=== PATIENT | male | born 1945 | race Caucasian/White ===

== ENCOUNTER 2016-02-22 08:56 | Emergency (ER) | payer OTHER ==
[~2016-02-22] VITALS: Ht 180.3 cm; Wt 79.2 kg
[~2016-02-22 08:56] MED LIST: ANORO ELLIPTA1 EACH IH; ATIVAN0.5 MG PO; AUGMENTIN875 MG PO; AZELASTINE137 MCG/0. BOTH NARES; B-121000 MC2 PO; BENICAR HCT 201 EACH PO; BENICAR HCT 401 EAC1 PO; BENICAR HCT 401 EACH PO; BENICAR40 MG PO; BENTYL20 MG PO; BYSTOLIC10 MG PO; BYSTOLIC5 MG PO; CARDIZEM CD,CA180 MG PO; CEFDINIR300 MG PO; CLINDAMYCIN HC300 MG PO; CLOPIDOGREL75 MG PO; CYANOCOBALAM1000 MCG PO; DELTASONE20 M1 PO; DEXILANT60 MG PO; DILAUDID2 MG PO; DILTIAZEM 24HR240 MG PO; DUONEB 2.5-0.5 M3 ML AEROSOL; DUONEB 2.5-0.5 M3 ML IH; ENDOCET 5-3251 EACH PO; FLEXERIL10 MG PO; HYDROCODON-ACE1 EAC9 PO; INCRUSE ELLI62.5 MCG IH; K-DUR10 MEQ PO; LEVAQUIN500 MG PO; LEVAQUIN750 MG PO; LEVOFLOXACIN500 MG PO; LOPRESSOR25 MG PO; LORAZEPAM0.5 MG PO; LORCET PLUS 7.1 EACH PO; LORTAB 5-325 M1 EACH PO; LOSARTAN POTAS100 MG PO; MEDROL8 MG PO; METOPROLOL TART25 MG PO; NAPROSYN375 MG PO; NASACORT10.8 ML BOTH NARES; NICOTINE PATCH1 EAC2 TD; NITROSTAT0.4 MG SL; OMEPRAZOLE40 M1 PO; PLAVIX75 MG PO; POLYETHYLENE GL17 GM PO; POTASSIUM CHLO20 ME1 PO; PREDNISONE10 MG PO; PREDNISONE20 MG PO; SIMVASTATIN20 MG PO; SIMVASTATIN40 MG PO; STIOLTO RESPIMAT4 GM IH; SYMBICORT60 INHALAT IH; THEO-DUR,THEOC300 MG PO; TUDORZA PRESS400 MCG IH; VENTOLIN HFA18 GM IH; XARELTO20 MG PO; ZITHROMAX Z-PA250 MG PO; ZITHROMAX250 MG PO; ZOLPIDEM TARTRAT5 MG PO
[2016-02-22 09:46] LABS: HEMATOCRIT 27.8 % (38.0-50.0); MCH 21.3 PG (29.0-34.0); MCHC 30.6 G/DL (30.0-36.0); MCV 69.7 FL (86-99); PLATELET COUNT 344 K/uL (156-360); RBC DIS.WIDTH-SD 46.8 % (39-53); RED BLOOD COUNT 3.99 M/uL (4.00-5.50); WHITE BLOOD COUNT 6.6 K/uL (4.1-10.2)
[2016-02-22 10:32] LABS: ANION GAP 15 MEQ/L (2-14); CHLORIDE 88 MEQ/L (99-109); POTASSIUM 2.6 MEQ/L (3.7-5.4); SAMPLE HEMOLYSIS CHECK 0; SAMPLE ICTERIC CHECK 0; SAMPLE LIPEMIA CHECK 0; SODIUM 130 MEQ/L (136-147)
[2016-02-22 10:38] LABS: GFR ESTIMATE (CALCULATED) > 59 mL/min/; GLUCOSE 179 mg/dL (70-99); UREA NITROGEN (BUN) 22 mg/dL (9-23)
[2016-02-22 11:02] LABS: TROP-I INTERPRETATION NEGATIVE; TROPONIN-I < 0.01 ng/mL (0.0-0.30)
[2016-02-22 13:17] VITALS: BP 142/77
== END 2016-02-22 13:21 | disposition home or self-care (01) ==
LOC: EME 08:56
PROVIDERS: Emergency Medicine
DX: E86.0 Dehydration (principal); E87.6 Hypokalemia; I48.91 Unspecified atrial fibrillation; J44.9 Chronic obstructive pulmonary disease, unspecified; E78.5 Hyperlipidemia, unspecified; I10 Essential (primary) hypertension; I25.2 Old myocardial infarction; K21.9 Gastro-esophageal reflux disease without esophagitis; Z95.1 Presence of aortocoronary bypass graft; Z79.891 Long term (current) use of opiate analgesic; F17.200 Nicotine dependence, unspecified, uncomplicated
CPT/HCPCS: 80048; 84484; 85027; 93005; 99281; 99285; J3480; J7030

== ENCOUNTER 2016-03-23 05:34 | Inpatient (IN) | payer OTHER ==
[~2016-03-23] VITALS: Ht 180.3 cm; Wt 86.3 kg
[~2016-03-23 05:34] MED LIST changes: +FERROUS SULFAT325 MG PO; +FUROSEMIDE40 MG PO; +K-DUR20 MEQ PO
[2016-03-23 06:36] LABS: EOSINOPHIL (%) 0.3 % (0-5); EOSINOPHIL COUNT 0.1 K/uL (0-0.3); HEMATOCRIT 41.8 % (38.0-50.0); IMMATURE GRANULOCYTE COUNT 1.4 K/uL; LYMPHOCYTE COUNT 1.2 K/uL (1.0-2.8); MCH 24.2 PG (29.0-34.0); MCHC 29.9 G/DL (30.0-36.0); MEAN PLAT.VOLUME 9.1 uM^3 (9.0-12.4); MONOCYTE (%) 4.3 % (3-12); MONOCYTE COUNT 0.6 K/uL (0-0.8); NEUTROPHIL COUNT 12.5 K/uL (1.8-6.4); RBC DIS.WIDTH-CV 28.5 % (11.8-14.6); RBC DIS.WIDTH-SD 79.8 % (39-53); WHITE BLOOD COUNT 14.5 K/uL (4.1-10.2)
[2016-03-23 06:39] LABS: CHLORIDE 99 mEq/L (99-109); POTASSIUM 3.6 mEq/L (3.7-5.4)
[2016-03-23 06:40] LABS: MCV 80.9 FL (86-99); PLATELET COUNT 242 K/uL (156-360); RED BLOOD COUNT 5.17 M/uL (4.00-5.50); SODIUM 140 mEq/L (136-147)
[2016-03-23 06:42] LABS: GLUCOSE 85 mg/dL (70-99)
[2016-03-23 06:43] LABS: ANION GAP 13 MEQ/L (2-14)
[2016-03-23 06:44] LABS: TOTAL BILIRUBIN 0.6 mg/dL (0.0-1.0)
[2016-03-23 06:45] LABS: ALKALINE PHOSPHATASE 68 IU/L (3-129); GFR ESTIMATE (CALCULATED) > 59 mL/min/
[2016-03-23 06:47] LABS: UREA NITROGEN (BUN) 25 mg/dL (9-23)
[2016-03-23 06:54] LABS: TROP-I INTERPRETATION NEGATIVE; TROPONIN-I 0.02 ng/mL (0.0-0.30)
[2016-03-23 07:20] LABS: SAMPLE HEMOLYSIS CHECK 0; SAMPLE ICTERIC CHECK 0; SAMPLE LIPEMIA CHECK 0
[2016-03-23 07:33] LABS: HEMATOLOGY COMMENT 1 CCL; PLAT.SUFFICIENCY ADEQUATE
[2016-03-23] MEDS ORDERED: MIRALAX255 GM PO (12:28)
[2016-03-23] MEDS ORDERED: ZOLPIDEM TARTRAT5 MG PO (12:28)
[2016-03-23] MEDS ORDERED: METHYLPREDNISOLO8 MG PO (12:29)
[2016-03-23 13:26] VITALS: BP 146/74
[2016-03-23 16:24] VITALS: BP 132/86
[2016-03-23 19:20] VITALS: BP 141/90
[2016-03-23 22:57] VITALS: BP 151/89
[2016-03-24 03:17] VITALS: BP 156/88
[2016-03-24 08:14] VITALS: BP 136/96
[2016-03-24 16:21] VITALS: BP 132/70; BP 134/94
[2016-03-24 20:00] VITALS: BP 153/92
[2016-03-24 23:57] VITALS: BP 144/82
[2016-03-25] VITALS (7 sets, daily range): BP systolic 139–163; BP diastolic 79–102
[2016-03-25 07:08] LABS: HEMATOCRIT 38.1 % (38.0-50.0); MCH 25.1 PG (29.0-34.0); MCHC 30.7 G/DL (30.0-36.0); MCV 81.6 FL (86-99); PLATELET COUNT 209 K/uL (156-360); RBC DIS.WIDTH-CV 27.4 % (11.8-14.6); RBC DIS.WIDTH-SD 80.4 % (39-53); RED BLOOD COUNT 4.67 M/uL (4.00-5.50); WHITE BLOOD COUNT 11.3 K/uL (4.1-10.2)
[2016-03-25 07:22] LABS: EOSINOPHIL (%) 0 % (0-5); IMMATURE GRANULOCYTE (%) 0.5 % (0.0-0.7); IMMATURE GRANULOCYTE COUNT 0.1 K/uL; LYMPHOCYTE COUNT 0.4 K/uL (1.0-2.8); MONOCYTE (%) 1.9 % (3-12); MONOCYTE COUNT 0.2 K/uL (0-0.8); NEUTROPHIL COUNT 10.6 K/uL (1.8-6.4)
[2016-03-25 07:45] LABS: ANION GAP 14 MEQ/L (2-14); CHLORIDE 97 MEQ/L (99-109); GFR ESTIMATE (CALCULATED) > 59 mL/min/; POTASSIUM 3.8 MEQ/L (3.7-5.4); SAMPLE HEMOLYSIS CHECK 0; SAMPLE ICTERIC CHECK 0; SAMPLE LIPEMIA CHECK 0; SODIUM 135 MEQ/L (136-147); UREA NITROGEN (BUN) 35 mg/dL (9-23)
[2016-03-25 07:46] LABS: GLUCOSE 163 mg/dL (70-99)
[2016-03-25 16:44] LABS: INTERNAL CONTROL VALID? YES
[2016-03-26 00:21] VITALS: BP 160/89
[2016-03-26 07:30] VITALS: BP 159/93
[2016-03-26 11:33] VITALS: BP 136/98
[2016-03-26 15:43] VITALS: BP 138/54
[2016-03-26 19:49] VITALS: BP 178/106
[2016-03-27] VITALS (7 sets, daily range): BP systolic 140–186; BP diastolic 78–103
[2016-03-28 03:02] VITALS: BP 138/81
[2016-03-28 07:06] LABS: NRBC (%) 0.3 /100 WBC (0-0)
[2016-03-28 07:23] LABS: EOSINOPHIL (%) 0 % (0-5); IMMATURE GRANULOCYTE (%) 0.6 % (0.0-0.7); IMMATURE GRANULOCYTE COUNT 0.1 K/uL; LYMPHOCYTE COUNT 0.5 K/uL (1.0-2.8); MONOCYTE (%) 1.6 % (3-12); MONOCYTE COUNT 0.2 K/uL (0-0.8); NEUTROPHIL (%) 92.8 % (45-76); NEUTROPHIL COUNT 9.5 K/uL (1.8-6.4)
[2016-03-28 07:36] LABS: HEMATOCRIT 38.3 % (38.0-50.0); MCH 24.9 PG (29.0-34.0); MCHC 30.5 G/DL (30.0-36.0); MCV 81.7 FL (86-99); RBC DIS.WIDTH-CV 26.2 % (11.8-14.6); RBC DIS.WIDTH-SD 75.8 % (39-53); RED BLOOD COUNT 4.69 M/uL (4.00-5.50); WHITE BLOOD COUNT 10.2 K/uL (4.1-10.2)
[2016-03-28 07:38] LABS: ALKALINE PHOSPHATASE 52 IU/L (3-129); ANION GAP 13 MEQ/L (2-14); CHLORIDE 93 MEQ/L (99-109); GFR ESTIMATE (CALCULATED) > 59 mL/min/; GLUCOSE 158 mg/dL (70-99); POTASSIUM 3.9 MEQ/L (3.7-5.4); SAMPLE HEMOLYSIS CHECK 0; SAMPLE ICTERIC CHECK 0; SAMPLE LIPEMIA CHECK 0; SODIUM 135 MEQ/L (136-147); TOTAL BILIRUBIN 0.8 MG/DL (0.0-1.0); UREA NITROGEN (BUN) 42 mg/dL (9-23)
[2016-03-28 07:59] VITALS: BP 168/97
[2016-03-28 08:57] LABS: MEAN PLAT.VOLUME 10.1 uM^3 (9.0-12.4); PLAT.SUFFICIENCY ADEQUATE; PLATELET COUNT 156 K/uL (156-360); USER ID STC
[2016-03-28 12:28] VITALS: BP 173/105
[2016-03-28 15:11] VITALS: BP 147/87
[2016-03-28 19:57] VITALS: BP 137/83
[2016-03-28 23:09] VITALS: BP 149/91
[2016-03-29 03:33] VITALS: BP 139/78
[2016-03-29 07:55] VITALS: BP 166/97
[2016-03-29 12:10] VITALS: BP 180/110
[2016-03-29 16:28] VITALS: BP 138/77
[2016-03-29 19:22] VITALS: BP 168/92
[2016-03-29 23:20] VITALS: BP 142/84
[2016-03-30 03:11] VITALS: BP 130/75
[2016-03-30 10:18] VITALS: BP 133/90
[2016-03-30 13:30] VITALS: BP 127/84
[2016-03-30 18:57] VITALS: BP 136/99
[2016-03-30 20:06] VITALS: BP 157/100
[2016-03-31] VITALS: BP 130/74
[2016-03-31 03:50] VITALS: BP 159/78
[2016-03-31 07:12] LABS: ANION GAP 11 MEQ/L (2-14); CHLORIDE 95 MEQ/L (99-109); GFR ESTIMATE (CALCULATED) > 59 mL/min/; GLUCOSE 208 mg/dL (70-99); SAMPLE HEMOLYSIS CHECK 0; SAMPLE ICTERIC CHECK 0; SAMPLE LIPEMIA CHECK 0; SODIUM 139 MEQ/L (136-147); UREA NITROGEN (BUN) 40 mg/dL (9-23)
[2016-03-31 07:17] LABS: POTASSIUM 2.9 MEQ/L (3.7-5.4)
[2016-03-31 08:15] LABS: HEMATOCRIT 39.6 % (38.0-50.0); MCH 23.8 PG (29.0-34.0); MCHC 29.3 G/DL (30.0-36.0); MCV 81.3 FL (86-99); PLATELET COUNT 123 K/uL (156-360); RBC DIS.WIDTH-CV 25.1 % (11.8-14.6); RBC DIS.WIDTH-SD 72.4 % (39-53); RED BLOOD COUNT 4.87 M/uL (4.00-5.50); WHITE BLOOD COUNT 8.7 K/uL (4.1-10.2)
[2016-03-31 08:23] LABS: ABS NEUTROPHIL COUNT 8.45; ANISOCYTOSIS 2+; HELMET CELLS RARE; HYPOCHROMASIA 2+; MACROCYTES 2+; OVALOCYTES OCC; PLAT.SUFFICIENCY DECREASED; POLYCHROMASIA RARE; SCHISTOCYTES RARE; SPHEROCYTES 1+; TARGET CELLS RARE; USER ID TLW
[2016-03-31 08:32] VITALS: BP 133/93
[2016-03-31 14:18] LABS: DELETE MACHINE DIFF? YES
[2016-03-31 16:00] VITALS: BP 155/95
[2016-04-01] VITALS: BP 144/101
[2016-04-01 08:20] VITALS: BP 149/95
[2016-04-01 11:46] LABS: ANION GAP 13 MEQ/L (2-14); CHLORIDE 98 MEQ/L (99-109); GFR ESTIMATE (CALCULATED) > 59 mL/min/; GLUCOSE 138 mg/dL (70-99); POTASSIUM 3.9 MEQ/L (3.7-5.4); SAMPLE HEMOLYSIS CHECK 0; SAMPLE ICTERIC CHECK 0; SAMPLE LIPEMIA CHECK 0; SODIUM 135 MEQ/L (136-147); UREA NITROGEN (BUN) 40 mg/dL (9-23)
[2016-04-01] MEDS ORDERED: MUCINEX600 MG PO (14:27)
[2016-04-01] MEDS ORDERED: ADVAIR HFA120 INHAL1 IH (14:27)
[2016-04-01] MEDS ORDERED: ANALGESIC BALM28 GM TP (14:27)
== END 2016-04-01 17:30 | disposition home or self-care (01) | DRG 192 ==
LOC: EME 05:34 → 5EAST 10:53 → EDOF 10:53 → 5EAST 12:38
PROVIDERS: Emergency Medicine; Internal Medicine; Internal Medicine Pulmonary Disease
DX: J44.1 Chronic obstructive pulmonary disease with (acute) exacerbation (principal); I48.91 Unspecified atrial fibrillation; J40 Bronchitis, not specified as acute or chronic; J01.90 Acute sinusitis, unspecified; I73.9 Peripheral vascular disease, unspecified; I25.10 Atherosclerotic heart disease of native coronary artery without angina pectoris; I10 Essential (primary) hypertension; F17.210 Nicotine dependence, cigarettes, uncomplicated; M19.90 Unspecified osteoarthritis, unspecified site; Z95.1 Presence of aortocoronary bypass graft; D64.9 Anemia, unspecified; E66.9 Obesity, unspecified
CPT/HCPCS: 36415; 71010; 71020; 80048; 80053; 80198; 82272; 83880; 84484; 85025; 86850; 86900; 86901; 86920; 86999; 87040; 87070; 87205; 93005; 94640; 94640 76; 94667; 94668; 94799; 99202; 99281; 99285; J0456; J0692; J0696; J2920; J2930; J3475; J7030; J7050

== ENCOUNTER 2016-04-19 11:47 | Inpatient (IN) | payer OTHER ==
[~2016-04-19] VITALS: Ht 181.6 cm; Wt 78.0 kg
[~2016-04-19 11:47] MED LIST changes: +ADVAIR HFA120 INHAL1 IH; +ANALGESIC BALM28 GM TP; +METHYLPREDNISOLO8 MG PO; +MIRALAX255 GM PO; +MUCINEX600 MG PO
[2016-04-19 12:37] LABS: HEMATOCRIT 36.8 % (38.0-50.0); MCH 26.2 PG (29.0-34.0); MCHC 32.3 G/DL (30.0-36.0); MCV 80.9 FL (86-99); MEAN PLAT.VOLUME 9.1 uM^3 (9.0-12.4); NRBC (%) 0.6 /100 WBC (0-0); PLATELET COUNT 212 K/uL (156-360); RBC DIS.WIDTH-CV 21.6 % (11.8-14.6); RBC DIS.WIDTH-SD 63.7 % (39-53); RED BLOOD COUNT 4.55 M/uL (4.00-5.50)
[2016-04-19 12:40] LABS: WHITE BLOOD COUNT 10.9 K/uL (4.1-10.2)
[2016-04-19 12:48] LABS: INTER. NORMALIZED RATIO 1.5; PROTHROMBIN TIME 15.6 (9.2-11.2); PTT 29.8 (25-32)
[2016-04-19 12:54] LABS: CHLORIDE 87 mEq/L (99-109); POTASSIUM 2.8 mEq/L (3.7-5.4); SODIUM 133 mEq/L (136-147)
[2016-04-19 12:57] LABS: ANION GAP 14 MEQ/L (2-14)
[2016-04-19 12:59] LABS: GFR ESTIMATE (CALCULATED) > 59 mL/min/
[2016-04-19 13:02] LABS: TROP-I INTERPRETATION NEGATIVE; TROPONIN-I 0.03 ng/mL (0.0-0.30)
[2016-04-19 13:23] LABS: GLUCOSE 140 mg/dL (70-99)
[2016-04-19 13:28] LABS: UREA NITROGEN (BUN) 24 mg/dL (9-23)
[2016-04-19 13:50] LABS: ABS NEUTROPHIL COUNT 8.5; ANISOCYTOSIS 1+; BAND NEUTROPHILS 0.9 % (0-8.0); BASOPHILS 0.9 %; EOSINOPHIL ABS CT 0; INSTRUMENT ABS NEUTROPHIL CT 7.8 K/uL; LYMPHOCYTES 4.4 % (15.0-45.0); METAMYELOCYTES 6.1 %; MICROCYTOSIS 1+; NUCLEATED RBC'S 2.6; PLAT.SUFFICIENCY ADEQUATE; POIKILOCYTOSIS 1+; SEG.NEUTROPHILS 77.2 % (46.0-76.0); SMUDGE CELLS 8.8; SPHEROCYTES 2+
[2016-04-19] MEDS ORDERED: FERGON324 MG PO (14:25)
[2016-04-19] MEDS ORDERED: ZOLPIDEM TARTRA10 MG PO (14:27)
[2016-04-19] MEDS ORDERED: FLONASE16 G1 BOTH NARES (14:29)
[2016-04-19] MEDS ORDERED: ASTEPRO 0.15%30 ML BOTH NARES (14:30)
[2016-04-19] MEDS ORDERED: SYMBICORT60 INHALAT IH (14:34)
[2016-04-19] MEDS ORDERED: VITAMIN B-12500 MC5 SL (14:35)
[2016-04-20 00:30] VITALS: BP 103/64
[2016-04-20 03:45] VITALS: BP 105/59
[2016-04-20 04:52] LABS: HEMATOCRIT 32.7 % (38.0-50.0); MCH 25.9 PG (29.0-34.0); MCHC 32.1 G/DL (30.0-36.0); MCV 80.5 FL (86-99); MEAN PLAT.VOLUME 9.4 uM^3 (9.0-12.4); NRBC (%) 0.6 /100 WBC (0-0); PLATELET COUNT 180 K/uL (156-360); RBC DIS.WIDTH-CV 21.5 % (11.8-14.6); RBC DIS.WIDTH-SD 63.3 % (39-53); RED BLOOD COUNT 4.06 M/uL (4.00-5.50); WHITE BLOOD COUNT 9.1 K/uL (4.1-10.2)
[2016-04-20 05:04] LABS: CHLORIDE 91 mEq/L (99-109); SODIUM 133 mEq/L (136-147)
[2016-04-20 05:06] LABS: GLUCOSE 180 mg/dL (70-99)
[2016-04-20 05:07] LABS: ANION GAP 12 MEQ/L (2-14)
[2016-04-20 05:08] LABS: TOTAL BILIRUBIN 0.5 mg/dL (0.0-1.0)
[2016-04-20 05:10] LABS: ALKALINE PHOSPHATASE 163 IU/L (3-129); GFR ESTIMATE (CALCULATED) > 59 mL/min/
[2016-04-20 05:11] LABS: UREA NITROGEN (BUN) 25 mg/dL (9-23)
[2016-04-20 08:47] VITALS: BP 170/83
[2016-04-20 15:32] VITALS: BP 141/74
[2016-04-20 19:13] VITALS: BP 135/90
[2016-04-20 23:08] VITALS: BP 123/61
[2016-04-21 04:15] VITALS: BP 141/71
[2016-04-21 07:15] LABS: ALKALINE PHOSPHATASE 161 IU/L (3-129); ANION GAP 13 MEQ/L (2-14); CHLORIDE 86 MEQ/L (99-109); GFR ESTIMATE (CALCULATED) > 59 mL/min/; GLUCOSE 191 mg/dL (70-99); POTASSIUM 3.1 MEQ/L (3.7-5.4); SAMPLE HEMOLYSIS CHECK 0; SAMPLE ICTERIC CHECK 0; SAMPLE LIPEMIA CHECK 0; SODIUM 131 MEQ/L (136-147); TOTAL BILIRUBIN 0.7 MG/DL (0.0-1.0); UREA NITROGEN (BUN) 32 mg/dL (9-23)
[2016-04-21 07:28] LABS: HEMATOCRIT 32.8 % (38.0-50.0); MCH 25.8 PG (29.0-34.0); MCV 80.6 FL (86-99); MEAN PLAT.VOLUME 9.8 uM^3 (9.0-12.4); NRBC (%) 1.7 /100 WBC (0-0); RBC DIS.WIDTH-CV 21.6 % (11.8-14.6); RBC DIS.WIDTH-SD 63.3 % (39-53); RED BLOOD COUNT 4.07 M/uL (4.00-5.50)
[2016-04-21 07:39] LABS: PLATELET COUNT 257 K/uL (156-360)
[2016-04-21 08:15] VITALS: BP 154/89
[2016-04-21 11:25] VITALS: BP 154/87
[2016-04-21 15:40] VITALS: BP 132/70
[2016-04-21 21:00] VITALS: BP 142/69
[2016-04-22] VITALS (7 sets, daily range): BP systolic 97–134; BP diastolic 57–84
[2016-04-23 03:09] VITALS: BP 138/68
[2016-04-23 07:28] LABS: ALKALINE PHOSPHATASE 141 IU/L (3-129); ANION GAP 12 MEQ/L (2-14); CHLORIDE 91 MEQ/L (99-109); GFR ESTIMATE (CALCULATED) > 59 mL/min/; GLUCOSE 198 mg/dL (70-99); SAMPLE HEMOLYSIS CHECK 0; SAMPLE ICTERIC CHECK 0; SAMPLE LIPEMIA CHECK 0; SODIUM 133 MEQ/L (136-147); TOTAL BILIRUBIN 0.7 MG/DL (0.0-1.0); UREA NITROGEN (BUN) 37 mg/dL (9-23)
[2016-04-23 07:31] LABS: HEMATOCRIT 29.8 % (38.0-50.0); MCH 26.8 PG (29.0-34.0); MCHC 32.9 G/DL (30.0-36.0); MCV 81.4 FL (86-99); NRBC (%) 1.8 /100 WBC (0-0); RBC DIS.WIDTH-CV 21.7 % (11.8-14.6); RBC DIS.WIDTH-SD 63.8 % (39-53); RED BLOOD COUNT 3.66 M/uL (4.00-5.50)
[2016-04-23 07:36] LABS: POTASSIUM 4.7 MEQ/L (3.7-5.4)
[2016-04-23 08:55] VITALS: BP 140/67
[2016-04-23 09:15] LABS: PLATELET COUNT UNABLE TO REPORT K/uL (156-360)
[2016-04-23 12:07] VITALS: BP 128/69
[2016-04-23 16:47] VITALS: BP 131/73
[2016-04-23 19:00] VITALS: BP 158/80
[2016-04-23 23:55] VITALS: BP 116/68
[2016-04-24 03:28] VITALS: BP 102/55
[2016-04-24 06:57] LABS: HEMATOCRIT 26.9 % (38.0-50.0); MCHC 31.2 G/DL (30.0-36.0); MCV 83.3 FL (86-99); MEAN PLAT.VOLUME 9.9 uM^3 (9.0-12.4); NRBC (%) 2.5 /100 WBC (0-0); RBC DIS.WIDTH-CV 21.9 % (11.8-14.6); RBC DIS.WIDTH-SD 66.4 % (39-53); RED BLOOD COUNT 3.23 M/uL (4.00-5.50); WHITE BLOOD COUNT 17.6 K/uL (4.1-10.2)
[2016-04-24 07:04] LABS: PLATELET COUNT 166 K/uL (156-360)
[2016-04-24 07:20] LABS: ANION GAP 10 MEQ/L (2-14); CHLORIDE 90 MEQ/L (99-109); GFR ESTIMATE (CALCULATED) > 59 mL/min/; GLUCOSE 176 mg/dL (70-99); SAMPLE HEMOLYSIS CHECK 0; SAMPLE ICTERIC CHECK 0; SAMPLE LIPEMIA CHECK 0; SODIUM 133 MEQ/L (136-147); UREA NITROGEN (BUN) 37 mg/dL (9-23)
[2016-04-24 07:45] VITALS: BP 117/57
[2016-04-24 07:50] LABS: ABS NEUTROPHIL COUNT 15.4; ANISOCYTOSIS 1+; ATYPICAL LYMPHOCYTE 1.8 %; BAND NEUTROPHILS 6.2 % (0-8.0); EOSINOPHIL ABS CT 0.2; EOSINOPHILS 0.9 % (0-5.0); HYPOCHROMASIA 1+; INSTRUMENT ABS NEUTROPHIL CT 15.1 K/uL; LYMPHOCYTES 3.6 % (15.0-45.0); METAMYELOCYTES 1.8 %; MICROCYTOSIS 1+; MYELOCYTES 3.6 %; NUCLEATED RBC'S 1.8; OVALOCYTES 2+; POIKILOCYTOSIS 2+; SEG.NEUTROPHILS 81.2 % (46.0-76.0)
[2016-04-24 11:40] VITALS: BP 128/82
[2016-04-24 14:58] LABS: HEMATOCRIT 28.8 % (38.0-50.0); MCH 26.9 PG (29.0-34.0); MCHC 32.3 G/DL (30.0-36.0); MCV 83.2 FL (86-99); NRBC (%) 2.7 /100 WBC (0-0); PLATELET COUNT 174 K/uL (156-360); RBC DIS.WIDTH-CV 22.3 % (11.8-14.6); RBC DIS.WIDTH-SD 66.2 % (39-53); RED BLOOD COUNT 3.46 M/uL (4.00-5.50); WHITE BLOOD COUNT 20.6 K/uL (4.1-10.2)
[2016-04-24 15:13] LABS: PROTHROMBIN TIME 10.5 (9.2-11.2)
[2016-04-24 15:15] VITALS: BP 130/74
[2016-04-24 15:25] LABS: HEM NON-PRINT 2 NC
[2016-04-24 19:00] VITALS: BP 177/84
[2016-04-24 23:15] VITALS: BP 109/61
[2016-04-25] VITALS (9 sets, daily range): BP systolic 114–165; BP diastolic 70–96
[2016-04-25 06:49] LABS: HEMATOCRIT 26.7 % (38.0-50.0); MCH 26.4 PG (29.0-34.0); MCHC 31.5 G/DL (30.0-36.0); MEAN PLAT.VOLUME 10.3 uM^3 (9.0-12.4); NRBC (%) 2.3 /100 WBC (0-0); PLATELET COUNT 158 K/uL (156-360); RBC DIS.WIDTH-CV 22.2 % (11.8-14.6); RBC DIS.WIDTH-SD 67.7 % (39-53); RED BLOOD COUNT 3.18 M/uL (4.00-5.50); WHITE BLOOD COUNT 17.1 K/uL (4.1-10.2)
[2016-04-25 07:16] LABS: ANION GAP 11 MEQ/L (2-14); CHLORIDE 92 MEQ/L (99-109); GFR ESTIMATE (CALCULATED) > 59 mL/min/; GLUCOSE 161 mg/dL (70-99); SAMPLE HEMOLYSIS CHECK 0; SAMPLE ICTERIC CHECK 0; SAMPLE LIPEMIA CHECK 0; SODIUM 137 MEQ/L (136-147); UREA NITROGEN (BUN) 37 mg/dL (9-23)
[2016-04-25 07:20] LABS: POTASSIUM 3.1 MEQ/L (3.7-5.4)
[2016-04-25 07:24] LABS: ANISOCYTOSIS 2+; ATYPICAL LYMPHOCYTE 0.9 %; BAND NEUTROPHILS 3.5 % (0-8.0); BASOPHILS 0.9 %; HYPOCHROMASIA 2+; LYMPHOCYTES 0.9 % (15.0-45.0); MACROCYTES 1+; METAMYELOCYTES 0.9 %; MICROCYTOSIS 1+; POIKILOCYTOSIS 1+; POLYCHROMASIA 1+; SEG.NEUTROPHILS 91.1 % (46.0-76.0); SPHEROCYTES 1+
[2016-04-25 07:25] LABS: ABS NEUTROPHIL COUNT 16.2; EOSINOPHIL ABS CT 0; PLAT.SUFFICIENCY DECREASED
[2016-04-25 19:56] LABS: HEMATOCRIT 31.6 % (38.0-50.0); MCH 26.9 PG (29.0-34.0); MCHC 32.3 G/DL (30.0-36.0); MCV 83.4 FL (86-99); MEAN PLAT.VOLUME 9.1 uM^3 (9.0-12.4); NRBC (%) 0.7 /100 WBC (0-0); PLATELET COUNT 152 K/uL (156-360); RBC DIS.WIDTH-CV 20.2 % (11.8-14.6); RBC DIS.WIDTH-SD 61.4 % (39-53); RED BLOOD COUNT 3.79 M/uL (4.00-5.50); WHITE BLOOD COUNT 19.2 K/uL (4.1-10.2)
[2016-04-26 03:45] VITALS: BP 124/73
[2016-04-26 07:20] VITALS: BP 129/66
[2016-04-26 07:24] LABS: ANION GAP 9 MEQ/L (2-14); CHLORIDE 96 MEQ/L (99-109); GFR ESTIMATE (CALCULATED) > 59 mL/min/; GLUCOSE 181 mg/dL (70-99); POTASSIUM 3.5 MEQ/L (3.7-5.4); SAMPLE HEMOLYSIS CHECK 0; SAMPLE ICTERIC CHECK 0; SAMPLE LIPEMIA CHECK 0; SODIUM 139 MEQ/L (136-147); UREA NITROGEN (BUN) 29 mg/dL (9-23)
[2016-04-26 07:31] LABS: ABS NEUTROPHIL COUNT 12.9; BAND NEUTROPHILS 2.6 % (0-8.0); EOSINOPHIL ABS CT 0; HEMATOCRIT 30.1 % (38.0-50.0); INSTRUMENT ABS NEUTROPHIL CT 12.1 K/uL; MCH 27.4 PG (29.0-34.0); MCHC 32.2 G/DL (30.0-36.0); MEAN PLAT.VOLUME 9.6 uM^3 (9.0-12.4); METAMYELOCYTES 1.7 %; NRBC (%) 0.5 /100 WBC (0-0); NUCLEATED RBC'S 0.9; PLAT.SUFFICIENCY DECREASED; PLATELET COUNT 145 K/uL (156-360); RBC DIS.WIDTH-CV 20.2 % (11.8-14.6); RED BLOOD COUNT 3.54 M/uL (4.00-5.50); SEG.NEUTROPHILS 94.8 % (46.0-76.0)
[2016-04-26 07:53] LABS: WHITE BLOOD COUNT 13.2 K/uL (4.1-10.2)
[2016-04-26 11:21] VITALS: BP 140/74
[2016-04-26 12:20] VITALS: BP 135/75
[2016-04-26 19:55] VITALS: BP 153/88
[2016-04-27] VITALS (7 sets, daily range): BP systolic 106–138; BP diastolic 63–91
[2016-04-27 07:38] LABS: HEMATOCRIT 28.1 % (38.0-50.0); MCH 26.9 PG (29.0-34.0); MCV 83.9 FL (86-99); MEAN PLAT.VOLUME 10.1 uM^3 (9.0-12.4); NRBC (%) 0.2 /100 WBC (0-0); PLATELET COUNT 114 K/uL (156-360); RBC DIS.WIDTH-CV 19.4 % (11.8-14.6); RBC DIS.WIDTH-SD 58.5 % (39-53); RED BLOOD COUNT 3.35 M/uL (4.00-5.50); WHITE BLOOD COUNT 10.7 K/uL (4.1-10.2)
[2016-04-28 04:26] VITALS: BP 134/74
[2016-04-28 08:07] VITALS: BP 101/58
[2016-04-28 08:15] LABS: HEMATOCRIT 32.1 % (38.0-50.0); MCHC 32.4 G/DL (30.0-36.0); MCV 83.4 FL (86-99); MEAN PLAT.VOLUME 10.5 uM^3 (9.0-12.4); PLATELET COUNT 102 K/uL (156-360); RBC DIS.WIDTH-CV 18.8 % (11.8-14.6); RBC DIS.WIDTH-SD 56.4 % (39-53); RED BLOOD COUNT 3.85 M/uL (4.00-5.50)
[2016-04-28 08:17] LABS: WHITE BLOOD COUNT 15.5 K/uL (4.1-10.2)
[2016-04-28 08:26] LABS: ALKALINE PHOSPHATASE 132 IU/L (3-129); ANION GAP 14 MEQ/L (2-14); CHLORIDE 87 MEQ/L (99-109); GFR ESTIMATE (CALCULATED) > 59 mL/min/; SAMPLE HEMOLYSIS CHECK 0; SAMPLE ICTERIC CHECK 0; SAMPLE LIPEMIA CHECK 0; SODIUM 133 MEQ/L (136-147); UREA NITROGEN (BUN) 18 mg/dL (9-23)
[2016-04-28 08:27] LABS: GLUCOSE 88 mg/dL (70-99); POTASSIUM 2.5 MEQ/L (3.7-5.4); TOTAL BILIRUBIN 1.1 MG/DL (0.0-1.0)
[2016-04-28 11:03] VITALS: BP 117/75
[2016-04-28 17:01] VITALS: BP 131/79
[2016-04-28 20:02] VITALS: BP 113/63
[2016-04-28 23:49] VITALS: BP 114/81
[2016-04-29 04:34] VITALS: BP 104/59
[2016-04-29 07:13] VITALS: BP 160/85
[2016-04-29 07:24] LABS: HEMATOCRIT 32.1 % (38.0-50.0); MCH 26.7 PG (29.0-34.0); MCHC 32.1 G/DL (30.0-36.0); MCV 83.2 FL (86-99); RBC DIS.WIDTH-CV 18.7 % (11.8-14.6); RBC DIS.WIDTH-SD 57.3 % (39-53); RED BLOOD COUNT 3.86 M/uL (4.00-5.50); WHITE BLOOD COUNT 18.7 K/uL (4.1-10.2)
[2016-04-29 07:34] LABS: PROTHROMBIN TIME 10.4 (9.2-11.2); PTT 20.3 (25-32)
[2016-04-29 08:02] LABS: ANION GAP 12 MEQ/L (2-14); CHLORIDE 91 MEQ/L (99-109); GFR ESTIMATE (CALCULATED) > 59 mL/min/; GLUCOSE 77 mg/dL (70-99); SAMPLE HEMOLYSIS CHECK 0; SAMPLE ICTERIC CHECK 0; SAMPLE LIPEMIA CHECK 0; SODIUM 133 MEQ/L (136-147); UREA NITROGEN (BUN) 17 mg/dL (9-23)
[2016-04-29 08:03] LABS: EOSINOPHIL (%) 0 % (0-5); HEMATOLOGY COMMENT 1 SMEAR COMPATIBLE; IMMATURE GRANULOCYTE (%) 4.3 % (0.0-0.7); IMMATURE GRANULOCYTE COUNT 0.8 K/uL; INSTRUMENT ABS NEUTROPHIL CT 16.9 K/uL; LYMPHOCYTE COUNT 0.7 K/uL (1.0-2.8); MONOCYTE (%) 1.8 % (3-12); MONOCYTE COUNT 0.3 K/uL (0-0.8); NEUTROPHIL (%) 90.2 % (45-76); NEUTROPHIL COUNT 16.9 K/uL (1.8-6.4); PLAT.SUFFICIENCY ADEQUATE; PLATELET CLUMPS PRESENT - PLATELET COUNT APPEARS ADQ.
[2016-04-29 08:04] LABS: POTASSIUM 3.4 MEQ/L (3.7-5.4)
[2016-04-29 08:06] LABS: PLATELET COUNT UNABLE TO REPORT K/uL (156-360)
[2016-04-29 11:09] VITALS: BP 91/61
[2016-04-29 12:11] LABS: ALKALINE PHOSPHATASE 124 IU/L (3-129); TOTAL BILIRUBIN 0.8 MG/DL (0.0-1.0)
[2016-04-29 15:52] VITALS: BP 115/65
[2016-04-29 17:34] LABS: POINT-OF-CARE METER ID UU13113675; POINT-OF-CARE USER ID 515036437
[2016-04-29 18:05] VITALS: BP 116/59
[2016-04-29 23:25] VITALS: BP 93/55
[2016-04-30 04:38] VITALS: BP 101/53
[2016-04-30 05:19] VITALS: BP 110/61
[2016-04-30 07:50] VITALS: BP 126/74
[2016-04-30 07:58] LABS: ANION GAP 8 MEQ/L (2-14); CHLORIDE 94 MEQ/L (99-109); GFR ESTIMATE (CALCULATED) > 59 mL/min/; GLUCOSE 96 mg/dL (70-99); POTASSIUM 2.8 MEQ/L (3.7-5.4); SAMPLE HEMOLYSIS CHECK 0; SAMPLE ICTERIC CHECK 0; SAMPLE LIPEMIA CHECK 0; SODIUM 133 MEQ/L (136-147); UREA NITROGEN (BUN) 17 mg/dL (9-23)
[2016-04-30 08:11] LABS: HEMATOCRIT 26.7 % (38.0-50.0); MCH 26.6 PG (29.0-34.0); MCHC 31.8 G/DL (30.0-36.0); MCV 83.4 FL (86-99); RBC DIS.WIDTH-CV 18.7 % (11.8-14.6); RBC DIS.WIDTH-SD 57.7 % (39-53)
[2016-04-30 11:04] LABS: BICARBONATE 29.9 mEq/L (22-26); CARBOXY HGB 1.7 % (0-5); COMMENTS - BLOOD GASES A+C+; METHEMOGLOBIN 1.6 % (0-1.5); PCO2 35 mm Hg (35-45); PO2 62 mm Hg (80-100); SITE RR; pH 7.54 (7.35-7.45)
[2016-04-30 11:05] LABS: DEVICE HHFNC; FI02 100 %; O2 FLOW 45 L/MIN
[2016-04-30 11:55] VITALS: BP 124/78
[2016-04-30 12:12] LABS: EOSINOPHIL (%) 0 % (0-5); IMMATURE GRANULOCYTE (%) 2.1 % (0.0-0.7); IMMATURE GRANULOCYTE COUNT 0.3 K/uL; INSTRUMENT ABS NEUTROPHIL CT 11.1 K/uL; LYMPHOCYTE COUNT 0.5 K/uL (1.0-2.8); MEAN PLAT.VOLUME 11.2 uM^3 (9.0-12.4); MONOCYTE (%) 1.7 % (3-12); MONOCYTE COUNT 0.2 K/uL (0-0.8); NEUTROPHIL (%) 91.9 % (45-76); NEUTROPHIL COUNT 11.1 K/uL (1.8-6.4); PLAT.SUFFICIENCY DECREASED
[2016-04-30 12:18] LABS: PLATELET COUNT 88 K/uL (156-360)
[2016-04-30 16:11] VITALS: BP 118/70
[2016-04-30 19:55] VITALS: BP 109/74
[2016-05-01] VITALS (11 sets, daily range): BP systolic 101–120; BP diastolic 56–76
[2016-05-01 09:50] LABS: EOSINOPHIL (%) 0 % (0-5); HEMATOCRIT 33.4 % (38.0-50.0); IMMATURE GRANULOCYTE (%) 2.6 % (0.0-0.7); IMMATURE GRANULOCYTE COUNT 0.4 K/uL; INSTRUMENT ABS NEUTROPHIL CT 12.4 K/uL; LYMPHOCYTE COUNT 0.5 K/uL (1.0-2.8); MCH 27.4 PG (29.0-34.0); MCHC 32.9 G/DL (30.0-36.0); MCV 83.1 FL (86-99); MONOCYTE (%) 1.6 % (3-12); MONOCYTE COUNT 0.2 K/uL (0-0.8); NEUTROPHIL (%) 91.7 % (45-76); NEUTROPHIL COUNT 12.4 K/uL (1.8-6.4); RBC DIS.WIDTH-CV 17.1 % (11.8-14.6); RBC DIS.WIDTH-SD 49.5 % (39-53); WHITE BLOOD COUNT 13.5 K/uL (4.1-10.2)
[2016-05-01 09:51] LABS: RED BLOOD COUNT 4.02 M/uL (4.00-5.50)
[2016-05-01 10:01] LABS: ALKALINE PHOSPHATASE 139 IU/L (3-129); ANION GAP 10 MEQ/L (2-14); CHLORIDE 93 MEQ/L (99-109); GFR ESTIMATE (CALCULATED) > 59 mL/min/; GLUCOSE 140 mg/dL (70-99); POTASSIUM 3.4 MEQ/L (3.7-5.4); SAMPLE HEMOLYSIS CHECK 0; SAMPLE ICTERIC CHECK 0; SAMPLE LIPEMIA CHECK 0; SODIUM 131 MEQ/L (136-147); TOTAL BILIRUBIN 0.5 MG/DL (0.0-1.0); UREA NITROGEN (BUN) 18 mg/dL (9-23)
[2016-05-01 10:38] LABS: MEAN PLAT.VOLUME 10.6 uM^3 (9.0-12.4); PLATELET COUNT 123 K/uL (156-360)
[2016-05-02 04:32] VITALS: BP 121/78
[2016-05-02 06:51] LABS: EOSINOPHIL (%) 0 % (0-5); HEMATOCRIT 29.9 % (38.0-50.0); IMMATURE GRANULOCYTE (%) 4.2 % (0.0-0.7); IMMATURE GRANULOCYTE COUNT 0.4 K/uL; INSTRUMENT ABS NEUTROPHIL CT 9.1 K/uL; LYMPHOCYTE COUNT 0.6 K/uL (1.0-2.8); MCH 27.5 PG (29.0-34.0); MCHC 32.4 G/DL (30.0-36.0); MCV 84.7 FL (86-99); MEAN PLAT.VOLUME 10.7 uM^3 (9.0-12.4); MONOCYTE (%) 1.7 % (3-12); MONOCYTE COUNT 0.2 K/uL (0-0.8); NEUTROPHIL (%) 88.5 % (45-76); NEUTROPHIL COUNT 9.1 K/uL (1.8-6.4); PLATELET COUNT 116 K/uL (156-360); RBC DIS.WIDTH-CV 17.3 % (11.8-14.6); RED BLOOD COUNT 3.53 M/uL (4.00-5.50); WHITE BLOOD COUNT 10.3 K/uL (4.1-10.2)
[2016-05-02 07:16] LABS: ALKALINE PHOSPHATASE 129 IU/L (3-129); ANION GAP 14 MEQ/L (2-14); CHLORIDE 101 MEQ/L (99-109); GFR ESTIMATE (CALCULATED) > 59 mL/min/; POTASSIUM 3.3 MEQ/L (3.7-5.4); SAMPLE HEMOLYSIS CHECK 0; SAMPLE ICTERIC CHECK 0; SAMPLE LIPEMIA CHECK 0; TOTAL BILIRUBIN 0.4 MG/DL (0.0-1.0); UREA NITROGEN (BUN) 16 mg/dL (9-23)
[2016-05-02 07:18] LABS: GLUCOSE 81 mg/dL (70-99); SODIUM 141 MEQ/L (136-147)
[2016-05-02 07:45] VITALS: BP 114/72
[2016-05-02 11:37] VITALS: BP 98/70
[2016-05-02 14:20] VITALS: BP 127/73
[2016-05-02 16:30] VITALS: BP 100/72
[2016-05-02 20:40] VITALS: BP 115/69
[2016-05-03] VITALS (7 sets, daily range): BP systolic 110–158; BP diastolic 67–94
[2016-05-04 04:41] VITALS: BP 145/84
[2016-05-04 09:00] VITALS: BP 126/76
[2016-05-04 12:01] VITALS: BP 111/70
[2016-05-04 15:47] VITALS: BP 136/85
[2016-05-04 20:35] VITALS: BP 134/85
[2016-05-04 23:52] VITALS: BP 134/88
[2016-05-05 07:44] VITALS: BP 116/76
[2016-05-05 11:24] VITALS: BP 107/56
[2016-05-05 16:09] VITALS: BP 124/69
[2016-05-05 20:00] VITALS: BP 133/70
[2016-05-05 23:55] VITALS: BP 128/81
[2016-05-06 04:00] VITALS: BP 123/72
[2016-05-06 06:23] LABS: ANION GAP 11 MEQ/L (2-14); CHLORIDE 103 MEQ/L (99-109); GFR ESTIMATE (CALCULATED) > 59 mL/min/; GLUCOSE 103 mg/dL (70-99); SAMPLE HEMOLYSIS CHECK 0; SAMPLE ICTERIC CHECK 0; SAMPLE LIPEMIA CHECK 0; SODIUM 139 MEQ/L (136-147); UREA NITROGEN (BUN) 18 mg/dL (9-23)
[2016-05-06 06:24] LABS: POTASSIUM 4.5 MEQ/L (3.7-5.4)
[2016-05-06 06:35] LABS: HEMATOCRIT 33.9 % (38.0-50.0); MCH 27.1 PG (29.0-34.0); MCHC 31.9 G/DL (30.0-36.0); NRBC (%) 0.4 /100 WBC (0-0); RBC DIS.WIDTH-CV 17.2 % (11.8-14.6); RBC DIS.WIDTH-SD 50.5 % (39-53); RED BLOOD COUNT 3.99 M/uL (4.00-5.50); WHITE BLOOD COUNT 9.6 K/uL (4.1-10.2)
[2016-05-06 07:05] VITALS: BP 135/85
[2016-05-06 07:43] LABS: MEAN PLAT.VOLUME 10.4 uM^3 (9.0-12.4); PLAT.SUFFICIENCY DECREASED; PLATELET COUNT 87 K/uL (156-360)
[2016-05-06 11:13] VITALS: BP 141/87
[2016-05-06 16:00] VITALS: BP 121/85
[2016-05-06 20:57] VITALS: BP 128/88
[2016-05-06 23:43] VITALS: BP 139/84
[2016-05-07] VITALS (7 sets, daily range): BP systolic 91–130; BP diastolic 68–84
[2016-05-08 05:12] VITALS: BP 118/77
[2016-05-08 07:41] LABS: HEMATOCRIT 34.7 % (38.0-50.0); MCH 27.5 PG (29.0-34.0); MCHC 31.4 G/DL (30.0-36.0); MCV 87.6 FL (86-99); NRBC (%) 0.4 /100 WBC (0-0); RBC DIS.WIDTH-CV 17.6 % (11.8-14.6); RBC DIS.WIDTH-SD 52.8 % (39-53); RED BLOOD COUNT 3.96 M/uL (4.00-5.50); WHITE BLOOD COUNT 7.8 K/uL (4.1-10.2)
[2016-05-08 07:43] VITALS: BP 140/79
[2016-05-08 08:15] LABS: ANION GAP 8 MEQ/L (2-14); CHLORIDE 103 MEQ/L (99-109); GFR ESTIMATE (CALCULATED) > 59 mL/min/; GLUCOSE 119 mg/dL (70-99); POTASSIUM 4.3 MEQ/L (3.7-5.4); SAMPLE HEMOLYSIS CHECK 0; SAMPLE ICTERIC CHECK 0; SAMPLE LIPEMIA CHECK 0; SODIUM 139 MEQ/L (136-147); UREA NITROGEN (BUN) 22 mg/dL (9-23)
[2016-05-08 11:46] LABS: MEAN PLAT.VOLUME 10.5 uM^3 (9.0-12.4)
[2016-05-08 12:52] VITALS: BP 128/76
[2016-05-08 20:00] VITALS: BP 123/82
[2016-05-09 00:46] VITALS: BP 119/70
[2016-05-09 05:25] VITALS: BP 129/67
[2016-05-09 07:45] VITALS: BP 135/74
[2016-05-09 09:14] LABS: HEMATOCRIT 37.5 % (38.0-50.0); MCH 27.9 PG (29.0-34.0); MCHC 31.7 G/DL (30.0-36.0); MCV 87.8 FL (86-99); NRBC (%) 0.2 /100 WBC (0-0); RBC DIS.WIDTH-CV 17.8 % (11.8-14.6); RBC DIS.WIDTH-SD 54.5 % (39-53); RED BLOOD COUNT 4.27 M/uL (4.00-5.50); WHITE BLOOD COUNT 9.7 K/uL (4.1-10.2)
[2016-05-09 09:26] LABS: ALKALINE PHOSPHATASE 205 IU/L (3-129); ANION GAP 10 MEQ/L (2-14); CHLORIDE 101 MEQ/L (99-109); GFR ESTIMATE (CALCULATED) > 59 mL/min/; GLUCOSE 119 mg/dL (70-99); POTASSIUM 4.3 MEQ/L (3.7-5.4); SAMPLE HEMOLYSIS CHECK 0; SAMPLE ICTERIC CHECK 0; SAMPLE LIPEMIA CHECK 0; SODIUM 139 MEQ/L (136-147); TOTAL BILIRUBIN 0.7 MG/DL (0.0-1.0); UREA NITROGEN (BUN) 25 mg/dL (9-23)
[2016-05-09 09:40] LABS: MEAN PLAT.VOLUME 10.3 uM^3 (9.0-12.4); PLAT.SUFFICIENCY DECREASED; PLATELET COUNT 111 K/uL (156-360)
[2016-05-09 12:30] VITALS: BP 127/76
[2016-05-09 16:50] VITALS: BP 137/96
[2016-05-09 19:22] VITALS: BP 147/89
[2016-05-10] VITALS (8 sets, daily range): BP systolic 106–170; BP diastolic 61–90
[2016-05-10 06:04] LABS: HEMATOCRIT 32.8 % (38.0-50.0); MCH 27.3 PG (29.0-34.0); MCHC 31.1 G/DL (30.0-36.0); MCV 87.9 FL (86-99); MEAN PLAT.VOLUME 10.7 uM^3 (9.0-12.4); NRBC (%) 0.3 /100 WBC (0-0); PLATELET COUNT 112 K/uL (156-360); RBC DIS.WIDTH-CV 17.8 % (11.8-14.6); RBC DIS.WIDTH-SD 53.9 % (39-53); RED BLOOD COUNT 3.73 M/uL (4.00-5.50)
[2016-05-10 06:05] LABS: WHITE BLOOD COUNT 5.9 K/uL (4.1-10.2)
[2016-05-10 06:34] LABS: ANION GAP 9 MEQ/L (2-14); CHLORIDE 102 MEQ/L (99-109); GFR ESTIMATE (CALCULATED) > 59 mL/min/; GLUCOSE 129 mg/dL (70-99); POTASSIUM 4.5 MEQ/L (3.7-5.4); SAMPLE HEMOLYSIS CHECK 0; SAMPLE ICTERIC CHECK 0; SAMPLE LIPEMIA CHECK 0; SODIUM 138 MEQ/L (136-147); UREA NITROGEN (BUN) 27 mg/dL (9-23)
[2016-05-10] MEDS ORDERED: MAG-AL PLUS SUS30 ML PO (12:18)
[2016-05-10] MEDS ORDERED: HYDROCODON-ACE1 EAC9 PO (12:20)
[2016-05-10] MEDS ORDERED: NITROSTAT0.4 MG SL (12:24)
[2016-05-10] MEDS ORDERED: TYLENOL REGULA325 MG PO (12:24)
[2016-05-10] MEDS ORDERED: CARDIZEM60 MG PO (12:24)
[2016-05-11 03:45] VITALS: BP 121/82
[2016-05-11 07:45] VITALS: BP 118/65; BP 126/75
[2016-05-11 11:25] VITALS: BP 116/76
[2016-05-11 15:20] VITALS: BP 102/58
[2016-05-11 19:15] VITALS: BP 103/55
[2016-05-12] VITALS (7 sets, daily range): BP systolic 114–137; BP diastolic 58–83
[2016-05-13] VITALS (7 sets, daily range): BP systolic 106–137; BP diastolic 58–84
[2016-05-13 09:50] LABS: GFR ESTIMATE (CALCULATED) > 59 mL/min/; UREA NITROGEN (BUN) 27 mg/dL (9-23)
[2016-05-14 00:20] VITALS: BP 132/82
[2016-05-14 04:05] VITALS: BP 124/77
[2016-05-14 08:09] VITALS: BP 130/82
[2016-05-14] MEDS ORDERED: ZOLPIDEM TARTRA10 MG PO (12:21)
[2016-05-14] MEDS ORDERED: ALPRAZOLAM1 MG PO (12:24)
[2016-05-14] MEDS ORDERED: NORCO 10/3251 TABLET PO (12:24)
[2016-05-14 12:27] VITALS: BP 139/85
== END 2016-05-14 14:58 | DRG 166 ==
LOC: EME 11:47 → 4EAST 17:30 → EDOF 17:30 → 4EAST 19:25 → 4SOUTH 05-12 23:41 → 2EAST 05-13 17:25
PROVIDERS: Emergency Medicine; Family Medicine; Internal Medicine; Internal Medicine Pulmonary Disease; Specialist
PROC: 30233N1 Transfusion of Nonautologous Red Blood Cells into Peripheral Vein, Percutaneous Approach (ICD-10-PCS; 2016-04-25)
PROC: 0B9K8ZX Drainage of Right Lung, Via Natural or Artificial Opening Endoscopic, Diagnostic (ICD-10-PCS; principal; 2016-04-29)
DX: J44.0 Chronic obstructive pulmonary disease with (acute) lower respiratory infection (principal); J18.9 Pneumonia, unspecified organism; J96.20 Acute and chronic respiratory failure, unspecified whether with hypoxia or hypercapnia; K92.1 Melena; J90 Pleural effusion, not elsewhere classified; J98.11 Atelectasis; J44.1 Chronic obstructive pulmonary disease with (acute) exacerbation; E87.6 Hypokalemia; Z95.1 Presence of aortocoronary bypass graft; E11.9 Type 2 diabetes mellitus without complications; F17.200 Nicotine dependence, unspecified, uncomplicated; E66.9 Obesity, unspecified; I73.9 Peripheral vascular disease, unspecified; F41.9 Anxiety disorder, unspecified; I25.10 Atherosclerotic heart disease of native coronary artery without angina pectoris; Z99.81 Dependence on supplemental oxygen; I10 Essential (primary) hypertension; E78.5 Hyperlipidemia, unspecified; I48.2 Chronic atrial fibrillation; K59.00 Constipation, unspecified; R13.10 Dysphagia, unspecified; D50.9 Iron deficiency anemia, unspecified; K21.9 Gastro-esophageal reflux disease without esophagitis; J45.909 Unspecified asthma, uncomplicated; K64.8 Other hemorrhoids; M25.511 Pain in right shoulder; G89.29 Other chronic pain; F32.9 Major depressive disorder, single episode, unspecified
CPT/HCPCS: 36600; 71010; 71020; 71250; 73030; 76937; 80048; 80053; 80170; 80202; 82565; 82803; 82948; 83880; 84484; 84520; 85025; 85027; 85610; 85730; 86850; 86900; 86901; 86920; 87040; 87070; 87077; 87116; 87186; 87205; 87206; 87801; 88108; 93005; 93306; 94010; 94640; 94640 76; 94667; 94668; 94760; 94799; 97530 GO; 97530 GP; 99202; 99281; 99285; J0295; J0696; J1580; J1940; J2250; J2270; J2543; J2930; J3370; J3480; J7030; J7050; J7512; P9016

== ENCOUNTER 2016-06-27 14:50 | Inpatient (IN) | payer OTHER ==
[~2016-06-27] VITALS: Ht 180.3 cm; Wt 71.3 kg
[~2016-06-27 14:50] MED LIST changes: +ALPRAZOLAM1 MG PO; +ASTEPRO 0.15%30 ML BOTH NARES; +CARDIZEM60 MG PO; +FERGON324 MG PO; +FLONASE16 G1 BOTH NARES; +MAG-AL PLUS SUS30 ML PO; +NORCO 10/3251 TABLET PO; +TYLENOL REGULA325 MG PO; +VITAMIN B-12500 MC5 SL; +ZOLPIDEM TARTRA10 MG PO
[2016-06-27 16:03] LABS: EOSINOPHIL (%) 0 % (0-5); HEMATOCRIT 28.6 % (38.0-50.0); IMMATURE GRANULOCYTE (%) 4.7 % (0.0-0.7); LYMPHOCYTE COUNT 0.9 K/uL (1.0-2.8); MCH 28.7 PG (29.0-34.0); MCHC 31.1 G/DL (30.0-36.0); MCV 92.3 FL (86-99); MEAN PLAT.VOLUME 9.9 uM^3 (9.0-12.4); MONOCYTE (%) 4.4 % (3-12); NEUTROPHIL (%) 86.7 % (45-76); PLATELET COUNT 257 K/uL (156-360); RBC DIS.WIDTH-CV 16.8 % (11.8-14.6)
[2016-06-27 16:14] LABS: CHLORIDE 99 mEq/L (99-109); POTASSIUM 5.6 mEq/L (3.7-5.4); SODIUM 133 mEq/L (136-147)
[2016-06-27 16:18] LABS: ANION GAP 13 MEQ/L (2-14); TOTAL BILIRUBIN 0.6 mg/dL (0.0-1.0)
[2016-06-27 16:20] LABS: ALKALINE PHOSPHATASE 84 IU/L (3-129); GFR ESTIMATE (CALCULATED) > 59 mL/min/
[2016-06-27 16:21] LABS: UREA NITROGEN (BUN) 51 mg/dL (9-23)
[2016-06-27 16:23] LABS: LIPASE 11 U/L (1.0-51.0)
[2016-06-27 16:24] LABS: GLUCOSE 110 mg/dL (70-99); TROP-I INTERPRETATION NEGATIVE; TROPONIN-I < 0.01 ng/mL (0.0-0.30)
[2016-06-27 16:35] LABS: ADD MIUA? NO; BILIRUBIN NEGATIVE; BLOOD NEGATIVE; COLOR YELLOW ((YELLOW)); GLUCOSE (STRIP) NEGATIVE; KETONES NEGATIVE; LEUKOCYTES NEGATIVE; NITRITE NEGATIVE; PROTEIN (STRIP) NEGATIVE; SPECIFIC GRAVITY 1.012 (1.000-1.030); UCUL ADDED? NO; UROBILINOGEN 0.2 MG/DL (0.2-1.0)
[2016-06-27 19:45] VITALS: BP 160/70
[2016-06-27 23:10] VITALS: BP 104/71
[2016-06-28 03:20] VITALS: BP 137/68
[2016-06-28 05:53] LABS: METH RESISTANT S AUREUS PCR POSITIVE (NEGATIVE)
[2016-06-28 05:57] LABS: PROBE CHECK PASS
[2016-06-28 08:10] LABS: ANION GAP 14 MEQ/L (2-14); CHLORIDE 106 MEQ/L (99-109); SAMPLE HEMOLYSIS CHECK 0; SAMPLE ICTERIC CHECK 0; SAMPLE LIPEMIA CHECK 0; TOTAL BILIRUBIN 0.5 MG/DL (0.0-1.0)
[2016-06-28 08:11] LABS: HEMATOCRIT 29.9 % (38.0-50.0); MCH 29.3 PG (29.0-34.0); MCHC 31.1 G/DL (30.0-36.0); MCV 94.3 FL (86-99); MEAN PLAT.VOLUME 11.1 uM^3 (9.0-12.4); PLATELET COUNT 227 K/uL (156-360); RBC DIS.WIDTH-CV 17.1 % (11.8-14.6); RBC DIS.WIDTH-SD 57.4 % (39-53); RED BLOOD COUNT 3.17 M/uL (4.00-5.50)
[2016-06-28 08:15] LABS: ALKALINE PHOSPHATASE 73 IU/L (3-129); GFR ESTIMATE (CALCULATED) > 59 mL/min/; GLUCOSE 138 mg/dL (70-99); SODIUM 140 MEQ/L (136-147); UREA NITROGEN (BUN) 32 mg/dL (9-23)
[2016-06-28 08:23] LABS: WHITE BLOOD COUNT 14.3 K/uL (4.1-10.2)
[2016-06-28 08:28] VITALS: BP 138/72
[2016-06-28] MEDS ORDERED: DIOVAN80 MG PO (09:32)
[2016-06-28] MEDS ORDERED: ZOLOFT25 MG PO (09:34)
[2016-06-28] MEDS ORDERED: ASPERCREME1 EACH TP (09:37)
[2016-06-28] MEDS ORDERED: CEFEPIME-D1 GM/50 ML IV (09:39)
[2016-06-28] MEDS ORDERED: MAGNESIUM400 M1 PO (09:41)
[2016-06-28] MEDS ORDERED: GUAIFENESIN600 MG PO (09:43)
[2016-06-28] MEDS ORDERED: PROTONIX40 MG PO (09:44)
[2016-06-28] MEDS ORDERED: PERIDEX1 ML MM (09:46)
[2016-06-28] MEDS ORDERED: PROBIOTIC1 EAC1 PO (09:49)
[2016-06-28] MEDS ORDERED: PULMICORT0.5 MG/21 IH (09:50)
[2016-06-28] MEDS ORDERED: SEROQUEL12.5 MG PO (09:51)
[2016-06-28] MEDS ORDERED: SALINE NASAL SP45 ML BOTH NARES (09:51)
[2016-06-28] MEDS ORDERED: C COMPLEX500 MG PO (09:52)
[2016-06-28] MEDS ORDERED: BUSPAR10 MG PO (09:53)
[2016-06-28] MEDS ORDERED: FEROSUL325 MG PO (09:54)
[2016-06-28] MEDS ORDERED: DUONEB 2.5-0.5 M3 ML AEROSOL (09:56)
[2016-06-28] MEDS ORDERED: PERCOCET 10/1 TABLET PO (09:57)
[2016-06-28] MEDS ORDERED: DULCOLAX10 MG PR (09:58)
[2016-06-28] MEDS ORDERED: FLEET MINERAL133 ML PR (10:01)
[2016-06-28] MEDS ORDERED: MAALOX MAXIMUM355 ML PO (10:03)
[2016-06-28] MEDS ORDERED: MILK OF MAGN PO (10:04)
[2016-06-28] MEDS ORDERED: POLYETHYLENE GL17 GM PO (10:07)
[2016-06-28] MEDS ORDERED: LIPITOR20 MG PO (10:08)
[2016-06-28] MEDS ORDERED: KLOR-CON M2020 MEQ PO (10:12)
[2016-06-28] MEDS ORDERED: PREDNISONE20 MG PO (10:13)
[2016-06-28] MEDS ORDERED: SINGULAIR10 MG PO (10:16)
[2016-06-28] MEDS ORDERED: SPIRONOLACTONE50 MG PO (10:16)
[2016-06-28 11:41] VITALS: BP 120/72
[2016-06-28 16:52] VITALS: BP 133/61
[2016-06-28 19:21] VITALS: BP 138/64
[2016-06-29] VITALS (7 sets, daily range): BP systolic 110–171; BP diastolic 64–76
[2016-06-29 07:12] LABS: HEMATOCRIT 25.5 % (38.0-50.0); MCH 29.5 PG (29.0-34.0); MCV 95.1 FL (86-99); NRBC (%) 0.1 /100 WBC (0-0); PLATELET COUNT 216 K/uL (156-360); RBC DIS.WIDTH-CV 16.9 % (11.8-14.6); RBC DIS.WIDTH-SD 58.4 % (39-53); RED BLOOD COUNT 2.68 M/uL (4.00-5.50); WHITE BLOOD COUNT 17.6 K/uL (4.1-10.2)
[2016-06-29 08:11] LABS: ALKALINE PHOSPHATASE 63 IU/L (3-129); ANION GAP 12 MEQ/L (2-14); CHLORIDE 106 MEQ/L (99-109); GFR ESTIMATE (CALCULATED) > 59 mL/min/; GLUCOSE 163 mg/dL (70-99); SAMPLE HEMOLYSIS CHECK 0; SAMPLE ICTERIC CHECK 0; SAMPLE LIPEMIA CHECK 0; SODIUM 139 MEQ/L (136-147); TOTAL BILIRUBIN 0.4 MG/DL (0.0-1.0); UREA NITROGEN (BUN) 27 mg/dL (9-23)
[2016-06-29 08:13] LABS: POTASSIUM 3.9 MEQ/L (3.7-5.4)
[2016-06-29 11:14] LABS: CARBOXY HGB 2.4 % (0-5); METHEMOGLOBIN 1.5 % (0-1.5); PCO2 38 mm Hg (35-45)
[2016-06-29 11:15] LABS: COMMENTS - BLOOD GASES A+C+; DEVICE NC; O2 FLOW 3 L/MIN; PO2 81 mm Hg (80-100); SITE LR; TOTAL RESP RATE 14 resp/min; pH 7.37 (7.35-7.45)
[2016-06-29 13:30] LABS: ADD MIUA? NO; BILIRUBIN NEGATIVE; BLOOD NEGATIVE; COLOR STRAW ((YELLOW)); GLUCOSE (STRIP) NEGATIVE; KETONES NEGATIVE; LEUKOCYTES NEGATIVE; NITRITE NEGATIVE; PROTEIN (STRIP) NEGATIVE; UROBILINOGEN 0.2 MG/DL (0.2-1.0)
[2016-06-30 03:34] VITALS: BP 128/76
[2016-06-30 06:51] LABS: ALKALINE PHOSPHATASE 69 IU/L (3-129); ANION GAP 12 MEQ/L (2-14); CHLORIDE 106 MEQ/L (99-109); GFR ESTIMATE (CALCULATED) > 59 mL/min/; GLUCOSE 161 mg/dL (70-99); SAMPLE HEMOLYSIS CHECK 0; SAMPLE ICTERIC CHECK 0; SAMPLE LIPEMIA CHECK 0; SODIUM 140 MEQ/L (136-147); TOTAL BILIRUBIN 0.4 MG/DL (0.0-1.0); UREA NITROGEN (BUN) 29 mg/dL (9-23)
[2016-06-30 08:00] VITALS: BP 127/64
[2016-06-30 11:06] LABS: HEMATOCRIT 32.2 % (38.0-50.0); MCH 28.8 PG (29.0-34.0); MCHC 29.8 G/DL (30.0-36.0); MCV 96.7 FL (86-99); MEAN PLAT.VOLUME 10.1 uM^3 (9.0-12.4); NRBC (%) 0.1 /100 WBC (0-0); PLATELET COUNT 263 K/uL (156-360); RBC DIS.WIDTH-CV 17.1 % (11.8-14.6); RBC DIS.WIDTH-SD 59.6 % (39-53)
[2016-06-30 11:13] LABS: RED BLOOD COUNT 3.33 M/uL (4.00-5.50); WHITE BLOOD COUNT 34.7 K/uL (4.1-10.2)
[2016-06-30 14:30] VITALS: BP 111/67
[2016-06-30 19:00] VITALS: BP 112/59
[2016-06-30 23:20] VITALS: BP 90/54
[2016-07-01 03:10] VITALS: BP 100/70
[2016-07-01 08:30] VITALS: BP 92/60
[2016-07-01 11:12] LABS: MEAN PLAT.VOLUME 10.1 uM^3 (9.0-12.4); PLATELET COUNT 266 K/uL (156-360)
[2016-07-01 11:13] LABS: HEMATOCRIT 31.5 % (38.0-50.0); MCH 28.5 PG (29.0-34.0); MCHC 30.5 G/DL (30.0-36.0); MCV 93.5 FL (86-99); NRBC (%) 0.2 /100 WBC (0-0); RBC DIS.WIDTH-CV 17.1 % (11.8-14.6); RED BLOOD COUNT 3.37 M/uL (4.00-5.50)
[2016-07-01 11:15] LABS: WHITE BLOOD COUNT 38.3 K/uL (4.1-10.2)
[2016-07-01 11:16] LABS: POTASSIUM 3.4 mEq/L (3.7-5.4)
[2016-07-01 11:20] LABS: ANION GAP 17 MEQ/L (2-14); TOTAL BILIRUBIN 0.6 mg/dL (0.0-1.0)
[2016-07-01 11:22] LABS: ALKALINE PHOSPHATASE 66 IU/L (3-129); GFR ESTIMATE (CALCULATED) > 59 mL/min/
[2016-07-01 11:23] LABS: UREA NITROGEN (BUN) 29 mg/dL (9-23)
[2016-07-01 11:26] LABS: CHLORIDE 111 mEq/L (99-109); GLUCOSE 101 mg/dL (70-99); SODIUM 148 mEq/L (136-147)
[2016-07-01 12:00] VITALS: BP 154/90
[2016-07-01 13:30] LABS: BASOPHIL COUNT 0.1 K/uL (0-0.1); EOSINOPHIL (%) 0 % (0-5); HEMATOLOGY COMMENT 1 SMEAR COMPATIBLE; IMMATURE GRANULOCYTE (%) 2.1 % (0.0-0.7); IMMATURE GRANULOCYTE COUNT 0.8 K/uL; INSTRUMENT ABS NEUTROPHIL CT 34.5 K/uL; LYMPHOCYTE COUNT 0.7 K/uL (1.0-2.8); MONOCYTE COUNT 2.3 K/uL (0-0.8); NEUTROPHIL COUNT 34.5 K/uL (1.8-6.4)
[2016-07-01 16:30] VITALS: BP 102/60
[2016-07-01 20:52] LABS: POC NON-PRINT COM 1 ND
[2016-07-01 22:33] LABS: C DIFF TOXIN POSITIVE (NEGATIVE)
[2016-07-01 22:40] LABS: PROBE CHECK PASS
[2016-07-01 23:21] LABS: BASE EXCESS -4.3 mEq/L (-3 to +3); BICARBONATE 19.8 mEq/L (22-26); CARBOXY HGB 2.2 % (0-5); COMMENTS - BLOOD GASES C; METHEMOGLOBIN 1.6 % (0-1.5); O2 FLOW 15 L/MIN; PCO2 32 mm Hg (35-45); PO2 440 mm Hg (80-100); SITE LF
[2016-07-01 23:22] LABS: DEVICE NRBM; FI02 100 %
[2016-07-01 23:31] LABS: HEMATOCRIT 31.6 % (38.0-50.0); MCH 28.7 PG (29.0-34.0); MCHC 30.4 G/DL (30.0-36.0); MCV 94.3 FL (86-99); MEAN PLAT.VOLUME 10.7 uM^3 (9.0-12.4); NRBC (%) 0.6 /100 WBC (0-0); PLATELET COUNT 271 K/uL (156-360); RBC DIS.WIDTH-CV 17.2 % (11.8-14.6); RBC DIS.WIDTH-SD 59.2 % (39-53); RED BLOOD COUNT 3.35 M/uL (4.00-5.50)
[2016-07-01 23:32] LABS: WHITE BLOOD COUNT 22.4 K/uL (4.1-10.2)
[2016-07-01 23:37] LABS: CHLORIDE 114 mEq/L (99-109); SODIUM 149 mEq/L (136-147)
[2016-07-01 23:39] VITALS: BP 90/46
[2016-07-01 23:40] LABS: GLUCOSE 95 mg/dL (70-99)
[2016-07-01 23:41] LABS: ANION GAP 18 MEQ/L (2-14)
[2016-07-01 23:42] LABS: TOTAL BILIRUBIN 0.5 mg/dL (0.0-1.0)
[2016-07-01 23:43] LABS: ALKALINE PHOSPHATASE 55 IU/L (3-129); GFR ESTIMATE (CALCULATED) 53 mL/min/
[2016-07-01 23:44] LABS: UREA NITROGEN (BUN) 38 mg/dL (9-23)
[2016-07-02] VITALS (17 sets, daily range): BP systolic 54–92; BP diastolic 23–62
[2016-07-02 01:20] LABS: INTER. NORMALIZED RATIO 1.2; PROTHROMBIN TIME 12.4 (9.2-11.2); PTT 28.9 (25-32)
[2016-07-02 02:25] LABS: METH RESISTANT S AUREUS PCR POSITIVE (NEGATIVE)
[2016-07-02 02:38] LABS: PROBE CHECK PASS
[2016-07-02 04:05] LABS: CHLORIDE 119 mEq/L (99-109); SODIUM 149 mEq/L (136-147)
[2016-07-02 04:07] LABS: GLUCOSE 77 mg/dL (70-99)
[2016-07-02 04:08] LABS: ANION GAP 15 MEQ/L (2-14)
[2016-07-02 04:09] LABS: TOTAL BILIRUBIN 0.4 mg/dL (0.0-1.0)
[2016-07-02 04:10] LABS: ALKALINE PHOSPHATASE 47 IU/L (3-129)
[2016-07-02 04:11] LABS: GFR ESTIMATE (CALCULATED) 49 mL/min/
[2016-07-02 04:12] LABS: UREA NITROGEN (BUN) 37 mg/dL (9-23)
[2016-07-02 04:18] LABS: POTASSIUM 4.1 mEq/L (3.7-5.4)
[2016-07-02 04:27] LABS: AMYLASE 136 IU/L (1-118)
[2016-07-02 04:35] LABS: LIPASE 4 U/L (1.0-51.0)
[2016-07-02 04:40] LABS: TROP-I INTERPRETATION NEGATIVE; TROPONIN-I 0.12 ng/mL (0.0-0.30)
[2016-07-02 05:15] LABS: ABS NEUTROPHIL COUNT 16.9; ANISOCYTOSIS 1+; EOSINOPHIL ABS CT 0; INSTRUMENT ABS NEUTROPHIL CT 18.8 K/uL; MCH 28.3 PG (29.0-34.0); MCHC 29.7 G/DL (30.0-36.0); MCV 95.5 FL (86-99); MEAN PLAT.VOLUME 11.7 uM^3 (9.0-12.4); MICROCYTOSIS 1+; NRBC (%) 0.6 /100 WBC (0-0); OVALOCYTES 1+; PLAT.SUFFICIENCY ADEQUATE; PLATELET COUNT 227 K/uL (156-360); RBC DIS.WIDTH-CV 17.4 % (11.8-14.6); RBC DIS.WIDTH-SD 59.8 % (39-53); RED BLOOD COUNT 3.14 M/uL (4.00-5.50); WHITE BLOOD COUNT 21.9 K/uL (4.1-10.2)
[2016-07-02 09:53] LABS: CHLORIDE 118 mEq/L (99-109); POTASSIUM 3.7 mEq/L (3.7-5.4); SODIUM 147 mEq/L (136-147)
[2016-07-02 09:54] LABS: GLUCOSE 88 mg/dL (70-99)
[2016-07-02 09:56] LABS: ANION GAP 16 MEQ/L (2-14)
[2016-07-02 09:58] LABS: GFR ESTIMATE (CALCULATED) 49 mL/min/
[2016-07-02 09:59] LABS: UREA NITROGEN (BUN) 35 mg/dL (9-23)
== END 2016-07-02 16:16 | DRG 871 ==
LOC: EME 14:50 → 4WEST 17:30 → 4EAST 17:30 → EDOF 17:30 → 4EAST 19:23 → 4WEST 07-01 23:28
PROVIDERS: Emergency Medicine; Hospitalist; Internal Medicine; Internal Medicine Critical Care Medicine; Internal Medicine Pulmonary Disease
PROC: 8E0ZXY6 Isolation (ICD-10-PCS; principal; 2016-06-28)
DX: A41.9 Sepsis, unspecified organism (principal); J18.9 Pneumonia, unspecified organism; R65.21 Severe sepsis with septic shock; G93.41 Metabolic encephalopathy; J96.01 Acute respiratory failure with hypoxia; Z66 Do not resuscitate; Z51.5 Encounter for palliative care; J98.11 Atelectasis; J44.1 Chronic obstructive pulmonary disease with (acute) exacerbation; F05 Delirium due to known physiological condition; A04.7 Enterocolitis due to Clostridium difficile; E87.2 Acidosis; E87.1 Hypo-osmolality and hyponatremia; I48.2 Chronic atrial fibrillation; I10 Essential (primary) hypertension; F41.9 Anxiety disorder, unspecified; F33.9 Major depressive disorder, recurrent, unspecified; I25.10 Atherosclerotic heart disease of native coronary artery without angina pectoris; M19.90 Unspecified osteoarthritis, unspecified site; J45.909 Unspecified asthma, uncomplicated; E78.5 Hyperlipidemia, unspecified; E11.65 Type 2 diabetes mellitus with hyperglycemia; R45.1 Restlessness and agitation; E86.0 Dehydration; G89.29 Other chronic pain; M54.9 Dorsalgia, unspecified; B35.1 Tinea unguium; R57.1 Hypovolemic shock; E87.5 Hyperkalemia; K59.00 Constipation, unspecified; J98.4 Other disorders of lung; Z78.1 Physical restraint status; Z98.62 Peripheral vascular angioplasty status; Z87.891 Personal history of nicotine dependence; Z95.5 Presence of coronary angioplasty implant and graft; Z79.01 Long term (current) use of anticoagulants; Z91.19 Patient's noncompliance with other medical treatment and regimen; Z88.0 Allergy status to penicillin; Z87.01 Personal history of pneumonia (recurrent)
CPT/HCPCS: 36600; 71010; 74000; 80048 91; 80053; 80202; 81003; 82140; 82150; 82272; 82607; 82746; 82803; 82948; 83605; 83690; 84443; 84484; 85025; 85025 91; 85027; 85610; 85730; 87040; 87086; 87493; 87641; 93005; 94640; 94640 76; 94799; 97530 GO; 97530 GP; 99202; 99281; 99285; J0696; J1160; J1630; J1940; J2060; J2270; J2543; J2920; J2930; J3010; J3370; J3480; J7030; J7050; J7120; P9045; S0028; S0030